=== PATIENT | male | born 1940 | race Caucasian/White ===

== ENCOUNTER 2017-06-17 16:27 | Emergency (ER) | payer BC, OTHER ==
[~2017-06-17] VITALS: Ht 172.7 cm; Wt 53.1 kg
[2017-06-17 16:50] VITALS: BP 122/84
== END 2017-06-17 19:13 | disposition left against medical advice (07) ==
LOC: ER 16:27
DX: M25.551 Pain in right hip (principal); Z53.21 Procedure and treatment not carried out due to patient leaving prior to being seen by health care provider